=== PATIENT | female | born 1935 ===

== ENCOUNTER 2022-01-23 08:07 | Outpatient (CLI) | payer MEDICAID ==
--- NOTE | 2022-01-23 13:02 | Fluoroscopy Report ---
Modified barium swallow INDICATION: Dysphagia Impression:: In conjunction with speech pathology patient was given multiple consistencies including applesauce, barium. No penetration or aspiration identified Signer Name: Ar Brower MD Signed: 01/23/2022 12:58 PM Workstation Name: [id number]
== END 2022-01-23 08:08 | disposition home or self-care (01) ==
LOC: PT 08:07
PROVIDERS: ATTEND Family Medicine
DX: R13.10 Dysphagia, unspecified (principal)
CPT/HCPCS: 74230